=== PATIENT | female | born 1995 | race Two or more races ===

== ENCOUNTER 2022-09-07 08:11 | Emergency (ER) | payer BC, OTHER ==
[~2022-09-07] VITALS: Ht 154.9 cm; Wt 50.0 kg
[2022-09-07 09:18] VITALS: BP 146/94
[2022-09-07] MEDS ORDERED: NAPR-746 PO (10:03)
== END 2022-09-07 10:13 | disposition home or self-care (01) ==
LOC: ER 08:11
DX: S93.601A Unspecified sprain of right foot, initial encounter (principal); L55.0 Sunburn of first degree; W18.11XA Fall from or off toilet without subsequent striking against object, initial encounter; Y93.01 Activity, walking, marching and hiking; Y92.89 Other specified places as the place of occurrence of the external cause; Y99.8 Other external cause status
CPT/HCPCS: 73630